=== PATIENT | male | born 1985 | race Caucasian/White ===

== ENCOUNTER 2023-07-15 19:30 | Emergency (ER) | payer SELFPAY ==
[2023-07-15 20:12] VITALS: RESP 18; BMI 34.6
[2023-07-15 23:16] VITALS: BP 114/71; PULSE 95; TEMP 97.6
== END 2023-07-16 02:23 | disposition home or self-care (01) ==
LOC: FER 19:30 → EDBD 19:30 → FER 07-16 02:23
DX: F10.920 Alcohol use, unspecified with intoxication, uncomplicated (principal); Y90.9 Presence of alcohol in blood, level not specified
CPT/HCPCS: 99283-25